=== PATIENT | male | born 1985 | race Hispanic/Latino ===

== ENCOUNTER 2018-08-20 08:48 | Emergency (ER) | payer BC, SELFPAY ==
--- NOTE | 2018-08-20 10:35 | RAD ---
RIGHT KNEE FOUR VIEWS: History: Right knee injury. FINDINGS: Joint spaces are preserved. Bipartite patella. No acute fracture, dislocation, or fluid distention of the suprapatellar bursa. IMPRESSION: No acute osseous abnormalities are demonstrated. POS: [facility]
== END 2018-08-20 10:08 | disposition home or self-care (01) ==
LOC: ERS 08:48
DX: S82.001A Unspecified fracture of right patella, initial encounter for closed fracture (principal); V59.40XA Driver of pick-up truck or van injured in collision with unspecified motor vehicles in traffic accident, initial encounter

== ENCOUNTER 2018-09-12 22:54 | Emergency (ER) | payer SELFPAY ==
[2018-09-12] MEDS ORDERED: Proparacaine 0.5% Opth 15 ML BOT ONE (23:10)
[2018-09-12] MEDS ORDERED: Fluorescein Opthalmic Strip ONE (23:10)
== END 2018-09-12 23:27 | disposition home or self-care (01) ==
LOC: ERS 22:54
DX: H57.12 Ocular pain, left eye (principal)
CPT/HCPCS: 99283